=== PATIENT | male | born 1985 | race Caucasian/White ===

== ENCOUNTER 2019-12-27 09:38 | Emergency (ER) | payer MEDICAID ==
[~2019-12-27] VITALS: Ht 183.5 cm; Wt 64.9 kg
[2019-12-27] MEDS ORDERED: PREG150C PO (10:45)
[2019-12-27 10:52] VITALS: BP 110/75
== END 2019-12-27 10:53 | disposition home or self-care (01) ==
LOC: ER 09:38
DX: G40.909 Epilepsy, unspecified, not intractable, without status epilepticus (principal); Z76.0 Encounter for issue of repeat prescription; Z79.899 Other long term (current) drug therapy
CPT/HCPCS: 99281

== ENCOUNTER 2020-01-11 18:17 | Emergency (ER) | payer MEDICAID ==
[~2020-01-11] VITALS: Ht 182.9 cm; Wt 79.5 kg
[~2020-01-11 18:17] MED LIST: PREG150C PO
[2020-01-11 19:44] VITALS: BP 146/88
== END 2020-01-11 20:39 | disposition home or self-care (01) ==
LOC: ER 18:18
DX: S46.811A Strain of other muscles, fascia and tendons at shoulder and upper arm level, right arm, initial encounter (principal); Z79.899 Other long term (current) drug therapy; X58.XXXA Exposure to other specified factors, initial encounter; Y93.89 Activity, other specified; Y92.89 Other specified places as the place of occurrence of the external cause; Y99.8 Other external cause status; Z86.69 Personal history of other diseases of the nervous system and sense organs
CPT/HCPCS: 99281

== ENCOUNTER 2020-01-15 13:41 | Emergency (ER) | payer MEDICAID ==
[~2020-01-15] VITALS: Ht 182.9 cm; Wt 77.9 kg
[2020-01-15 13:44] VITALS: BP 114/70
--- NOTE | 2020-01-15 15:35 | NUR ---
WHEN PATIENT WAS BEING ESCORTED TO [facility], STATED "I FORGOT SOMETHING, I'LL BE RIGHT BACK" PATIENT LEFT AND NEVER RETURNED.
[2020-01-16] MEDS ORDERED: GABA-534 PO (07:14)
== END 2020-01-15 15:36 | disposition left against medical advice (07) ==
LOC: ER 13:41
DX: R56.9 Unspecified convulsions (principal); Z76.0 Encounter for issue of repeat prescription; Z53.21 Procedure and treatment not carried out due to patient leaving prior to being seen by health care provider

== ENCOUNTER 2020-01-15 23:08 | Emergency (ER) | payer MEDICAID ==
[~2020-01-15] VITALS: Ht 182.9 cm; Wt 81.8 kg
[2020-01-15 23:22] VITALS: BP 147/84
[2020-01-16] MEDS ORDERED: GABA-534 PO (07:14)
== END 2020-01-16 01:25 | disposition left against medical advice (07) ==
LOC: ER 23:08
DX: R56.9 Unspecified convulsions (principal); Z76.0 Encounter for issue of repeat prescription; Z53.21 Procedure and treatment not carried out due to patient leaving prior to being seen by health care provider

== ENCOUNTER 2020-01-16 06:54 | Emergency (ER) | payer MEDICAID ==
[~2020-01-16] VITALS: Ht 182.9 cm; Wt 79.0 kg
[2020-01-16 06:58] VITALS: BP 138/84
[2020-01-16] MEDS ORDERED: GABA-534 PO (07:14)
== END 2020-01-16 07:24 | disposition home or self-care (01) ==
LOC: ER 06:55
DX: R56.9 Unspecified convulsions (principal); F17.200 Nicotine dependence, unspecified, uncomplicated; F15.90 Other stimulant use, unspecified, uncomplicated; Z76.0 Encounter for issue of repeat prescription; Z79.899 Other long term (current) drug therapy
CPT/HCPCS: 99281

== ENCOUNTER 2020-01-18 01:20 | Emergency (ER) | payer MEDICAID ==
[~2020-01-18] VITALS: Ht 180.3 cm; Wt 79.5 kg
[~2020-01-18 01:20] MED LIST changes: +GABA-534 PO
[2020-01-18 01:23] VITALS: BP 134/80
== END 2020-01-18 02:39 | disposition left against medical advice (07) ==
LOC: ER 01:21
DX: J45.909 Unspecified asthma, uncomplicated (principal); Z76.0 Encounter for issue of repeat prescription; Z53.21 Procedure and treatment not carried out due to patient leaving prior to being seen by health care provider

== ENCOUNTER 2020-03-01 23:45 | Inpatient (IN) | payer MEDICAID ==
[~2020-03-01] VITALS: Ht 180.3 cm; Wt 84.7 kg
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
[2020-03-02] MEDS ORDERED: LIDOcaine 1% W/epiNEPHrine 1:200,000 10ml vial IJ ONE ×2 (00:10→01:15)
[2020-03-02] MEDS ORDERED: TETanus/Pertussis (Acell)/Diphther VAC/PF (Tdap-Adult) 0.5ml syringe IMVAC ONE (00:10)
[2020-03-02] MEDS ORDERED: haloperidol lactate 5mg/ml inj IM ONE (00:10)
[2020-03-02] MEDS ORDERED: diphenhydrAMINE 50 mg/ml inj IM ONE (00:10)
[2020-03-02] MEDS ORDERED: LORazepam 2 mg/ml vial IM ONE (00:10)
--- NOTE | 2020-03-02 00:20 | NUR ---
Patient hyperactive, erratic, anxious and unable to follow directions. Ativan 2mg, haldol 10 mg and Benadryl 50mg IV administered per physcian's order.
[2020-03-02 00:24] LABS: BASOPHILS # (AUTO) 0.1 X10'3 (0-0.2); BASOPHILS % (AUTO) 1.1 % (0-1); EOSINOPHILS # (AUTO) 0.1 X10'3 (0-0.9); EOSINOPHILS % (AUTO) 1.3 % (0-6); HEMATOCRIT 42.7 % (42.0-52.0); HEMOGLOBIN 14.8 g/dl (14.0-17.9); LYMPHOCYTES # (AUTO) 1.6 X10'3 (1.1-4.8); LYMPHOCYTES % (AUTO) 17.3 % (21-51); MEAN CORPUSCULAR HGB CONC 34.6 g/dL (33.0-36.5); MEAN CORPUSCULAR VOLUME 89.7 FL (78-98); MONOCYTES # (AUTO) 0.7 X10'3 (0-0.9); MONOCYTES % (AUTO) 7.2 % (2-12); NEUTROPHILS # (AUTO) 6.8 X10'3 (1.8-7.7); NEUTROPHILS % (AUTO) 73.1 % (42-75); PLATELET COUNT 230 X10'3 (140-440); RED BLOOD COUNT 4.77 X10'6 (4.70-6.10); RED CELL DISTRIBUTION WIDTH 13.4 % (11.5-14.5); WHITE BLOOD COUNT 9.3 X10'3 (4.5-11.0)
[2020-03-02 00:26] LABS: ALANINE AMINOTRANSFERASE 23 U/L (12-78); ALBUMIN 4.2 G/DL (3.4-5.0); ALBUMIN/GLOBULIN RATIO 1.3 (1.1-1.5); ALKALINE PHOSPHATASE 62 IU/L (46-116); ANION GAP 12 (8-16); ASPARTATE AMINO TRANSFERASE 45 U/L (10-37); BLOOD UREA NITROGEN 19 MG/DL (7-18); BUN/CREATININE RATIO 14.4 (5.4-32.0); CALCIUM 8.8 MG/DL (8.5-10.1); CHLORIDE 106 MMOL/L (99-107); CREATININE 1.32 MG/DL (0.60-1.10); GLUCOSE 111 MG/DL (70-104); POTASSIUM 3.6 MMOL/L (3.5-5.1); SODIUM 141 MMOL/L (135-145); TOTAL CARBON DIOXIDE 22.6 MMOL/L (24-32); TOTAL PROTEIN 7.4 G/DL (6.4-8.2); eGFR 62 ML/MIN
[2020-03-02 00:35] LABS: ETHANOL < 0.010 GM/DL (0.0-0.010)
--- NOTE | 2020-03-02 00:44 | NUR ---
daisy elmore. phone [phone] His states he has a long drug abuse HX. She states he has taken all kinds of drugs including opiates, methamphetamine to pills etc. she states that he hasnt been "right" for quite sometime and is just getting worse. was affraid for her safety and sent him to his parent's in [place] in hopes that they could help him.
--- NOTE | 2020-03-02 00:53 | NUR ---
Spoke with pt. who is able to answer assessment questions more appropriately now. [facility] suicide risk re-done. Pt. denies active S/I at this time.
[2020-03-02 01:03] LABS: CLARITY,URINE SLIGHTLY CLOUDY (Clear); COLOR,URINE YELLOW (Yellow); GLUCOSE, URINE NEGATIVE (Neg); KETONES,URINE NEGATIVE (Neg); LEUKOCYTE ESTERASE ,URINE NEGATIVE (Neg); NITRITES, URINE NEGATIVE (Neg); OCCULT BLOOD,URINE TRACE-INTACT (Neg); PROTEIN,URINE 100 mg/dl (Neg)
[2020-03-02 01:10] LABS: URINE AMPHETAMINE SCREEN POSITIVE (Neg); URINE BARBITUATE SCREEN NEGATIVE (Neg); URINE BENZODIAZEPINES SCREEN NEGATIVE (Neg); URINE CANNABINOID SCREEN NEGATIVE (Neg); URINE COCAINE SCREEN NEGATIVE (Neg); URINE METHADONE SCREEN NEGATIVE (Neg); URINE OPIATE SCREEN NEGATIVE (Neg); URINE PHENCYCLIDINE SCREEN NEGATIVE (Neg)
[2020-03-02 01:20] LABS: UA COLLECTION TYPE STRAIGHT CATH
[2020-03-02 01:24] LABS: AMORPHOUS PHOSPHATES 1+; BACTERIA,URINE NONE SEEN /HPF (Neg); MUCUS STRANDS MANY /LPF (Neg); RBC,URINE 0-2 /HPF (0-2); SQUAMOUS EPITHELIAL CELL,UR FEW /LPF (FEW); WBC,URINE 0-4 /HPF (0-4)
--- NOTE | 2020-03-02 01:29 | NUR ---
Physician at bedside performing loose approximation of R hand lac. Pt. tolerating procedure well.
[2020-03-02] MEDS ORDERED: bacitracin 15gm ointment TP ONE (01:35)
--- NOTE | 2020-03-02 02:05 | NUR ---
control room technician applying splint to R arm/hand per physician's order at this time.
[2020-03-02] MEDS ORDERED: BUPR8TAB4 PO (02:07)
[2020-03-02] MEDS ORDERED: GABA800T11 PO (02:08)
[2020-03-02] MEDS ORDERED: normal saline 1000ML IV soln IVB ONE (02:25)
[2020-03-02] MEDS ORDERED: ceFAZolin 1000mg inj IV ONE (02:25)
[2020-03-02] MEDS ORDERED: cefazolin/dext.iso 2gm/100ml 100 ML IV ONE (02:35)
--- NOTE | 2020-03-02 03:14 | NUR ---
Pt. sleeping comfortably on supine position. VSS. No s/s of distress observed.
--- NOTE | 2020-03-02 04:24 | NUR ---
ASKED TO REVIEW CHART BY NURSE SUP FOR ADMIT TO FLOOR.
--- NOTE | 2020-03-02 04:39 | NUR ---
Pt. continues to sleep. VSS. No s/s of distress observed at this time.
--- NOTE | 2020-03-02 05:23 | NUR ---
Pt. continues to sleep. He is able to reposition self. No s/s of distress observed at this time. VSS.
[2020-03-02] MEDS ORDERED: ondansetron/PF 4mg/2ml inj IV PRN (05:25)
[2020-03-02] MEDS ORDERED: acetaminophen 325mg tablet PO PRN (05:25)
[2020-03-02] MEDS: normal saline 1000ml 1,000 ML IV SCH ×2 (05:34→19:41)
[2020-03-02] MEDS: morphine 2 MG/ML inj. syringe IV PRN (06:12)
--- NOTE | 2020-03-02 06:50 | NUR ---
RECEIVED TELEPHONE REPORT FROM JAIRO FRENCH
[2020-03-02 07:00] VITALS: BP 129/78
[2020-03-02] MEDS ORDERED: BUPRENORPHINE PO SCH (08:00)
[2020-03-02] MEDS: gabapentin 400mg capsule PO SCH ×3 (08:29→20:30)
[2020-03-02 11:00] VITALS: BP 116/77
[2020-03-02] MEDS: VANCOmycin 1250MG/NS 250ml Bag 250 ML IV SCH ×2 (12:20→23:33)
--- NOTE | 2020-03-02 12:52 | NUR ---
CALLED PT'S ABOUT HOME MED SHE SAYS SHE LIVES IN [place], THAT THE PATIENT HAS "MENTAL HEALTH ISSUES" WHICH BROUGHT HIM TO [facility]. SHE SAYS SHE WILL CALL THE PATIENT'S MOM AND ASK HER TO BRING THE MEDICATION.
[2020-03-02] MEDS ORDERED: BUPRENORPHINE SL SCH (13:36)
[2020-03-02 15:00] VITALS: BP 110/67
--- NOTE | 2020-03-02 15:02 | NUR ---
EASILY AWAKENED, THEN GOES BACK TO SLEEP.BEEN LIKE THIS SINCE ARRIVAL. A+0. ASKED IF HE COULD STAY AWAKE/PAY ATTENTION LONG ENOUGH FOR ADMISSION INTERVIEW(DART). STATES:" NO, WOULD LIKE TO DO IT LATER".
--- NOTE | 2020-03-02 18:10 | NUR ---
Patient in room U 3022. I have received report from JAIRO Ignacio and had the opportunity to ask questions and assume patient care. Patient denies CP, SOB, dizziness, n/v,and rated pain 0/10. Patient denies suicidal thoughts. Patient seems fatigued and sleepy. Sitter in place
--- NOTE | 2020-03-02 18:10 | NUR ---
Problems reprioritized. Patient report given, questions answered & plan of care reviewed with marily castellano.
[2020-03-02 19:00] VITALS: BP 111/69
[2020-03-02 22:00] VITALS: BP 113/69
--- NOTE | 2020-03-02 22:54 | NUR ---
EDWIN: Got information for the admission assessment from , Gaby at . She makes all decision for patient.
[2020-03-03] VITALS (22 sets, daily range): BP systolic 105–141; BP diastolic 55–90
[2020-03-03] MEDS: HYDROcodone/acetaminophen 5mg/325mg tablet PO PRN (05:01)
[2020-03-03 05:30] LABS: BASOPHILS % (AUTO) 0.7 % (0-1); EOSINOPHILS # (AUTO) 0.3 X10'3 (0-0.9); EOSINOPHILS % (AUTO) 4.5 % (0-6); HEMATOCRIT 39.3 % (42.0-52.0); HEMOGLOBIN 13.3 g/dl (14.0-17.9); LYMPHOCYTES # (AUTO) 2.2 X10'3 (1.1-4.8); LYMPHOCYTES % (AUTO) 35.3 % (21-51); MEAN CORPUSCULAR HEMOGLOBIN 30.6 PG (27.0-31.0); MEAN CORPUSCULAR HGB CONC 33.8 g/dL (33.0-36.5); MEAN CORPUSCULAR VOLUME 90.4 FL (78-98); MEAN PLATELET VOLUME 8.2 FL (7.4-10.4); MONOCYTES # (AUTO) 0.5 X10'3 (0-0.9); MONOCYTES % (AUTO) 8.2 % (2-12); NEUTROPHILS # (AUTO) 3.2 X10'3 (1.8-7.7); NEUTROPHILS % (AUTO) 51.3 % (42-75); PLATELET COUNT 191 X10'3 (140-440); RED BLOOD COUNT 4.35 X10'6 (4.70-6.10); WHITE BLOOD COUNT 6.1 X10'3 (4.5-11.0)
[2020-03-03] MEDS: normal saline 1000ml 1,000 ML IV SCH ×2 (05:35→15:37)
[2020-03-03 05:42] LABS: ANION GAP 7 (8-16); BLOOD UREA NITROGEN 12 MG/DL (7-18); BUN/CREATININE RATIO 15.4 (5.4-32.0); CALCIUM 7.9 MG/DL (8.5-10.1); CHLORIDE 109 MMOL/L (99-107); CREATININE 0.78 MG/DL (0.60-1.10); GLUCOSE 83 MG/DL (70-104); POTASSIUM 3.8 MMOL/L (3.5-5.1); SODIUM 141 MMOL/L (135-145); TOTAL CARBON DIOXIDE 25.4 MMOL/L (24-32); eGFR > 90 ML/MIN
--- NOTE | 2020-03-03 06:25 | NUR ---
Problems reprioritized. Patient report given, questions answered & plan of care reviewed with JAIRO Ignacio.
--- NOTE | 2020-03-03 06:30 | NUR ---
Patient in room PCU 3022. I have received report from zaynab castellano had the opportunity to ask questions and assume patient care.
[2020-03-03] MEDS: gabapentin 400mg capsule PO SCH ×3 (07:51→19:57)
[2020-03-03] MEDS ORDERED: BUPRENORPHINE SL SCH (08:00)
[2020-03-03] MEDS: VANCOmycin 1250MG/NS 250ml Bag 250 ML IV SCH ×2 (08:46→16:19)
[2020-03-03] MEDS ORDERED: BUPRENORPHINE HCL 8 MG SL SCH (11:01)
[2020-03-03] MEDS ORDERED: BUPIVAcaine/PF 2.5mg/ml (0.25%) 10ml vial ONE (11:16)
--- NOTE | 2020-03-03 11:34 | NUR ---
TO OR VIA BED.
[2020-03-03] MEDS ORDERED: ondansetron/PF 4mg/2ml inj IV PRN (11:55)
[2020-03-03] MEDS ORDERED: meperidine/PF 25mg/ml syringe IV PRN ×3 (11:55)
[2020-03-03] MEDS ORDERED: ringers solution, lacted 1,000 ML IV SCH (11:55)
[2020-03-03] MEDS ORDERED: morphine 4 MG/ML inj SYRINge IV PRN (11:55)
[2020-03-03] MEDS ORDERED: morphine 2 MG/ML inj. syringe IV PRN (11:55)
[2020-03-03] MEDS ORDERED: acetaminophen 1,000mg/100ml IV 100 ML IV PRN (11:55)
[2020-03-03] MEDS ORDERED: proCHLORperazine 10 MG/2 ml inj IV PRN (11:55)
[2020-03-03] MEDS ORDERED: sevoflurane 250ml liquid IH ONE (12:01)
[2020-03-03] MEDS ORDERED: midazolam 2 mg/2 ml injection ONE (12:05)
[2020-03-03] MEDS ORDERED: LIDOcaine 2% (20mg/ml) 5ml vial ONE (12:18)
[2020-03-03] MEDS ORDERED: propofol inj 20 ML IV ONE (12:18)
[2020-03-03] MEDS ORDERED: fentaNYL/PF 50MCG/1 ML 2ML syringe ONE (12:18)
[2020-03-03] MEDS ORDERED: ondansetron/PF 4mg/2ml inj ONE (12:21)
[2020-03-03] MEDS ORDERED: dexamethasone sod phosphate 4mg/ml inj. ONE (12:21)
[2020-03-03] MEDS ORDERED: ketorolac trometh. 30mg/ml inj. ONE (12:24)
[2020-03-03] MEDS ORDERED: BUPIVAcaine/PF 2.5 mg/ml (0.25%) 30ml vial ONE (12:30)
[2020-03-03] MEDS ORDERED: morphine 10mg/ml inj. ONE ×2 (12:36→13:16)
--- NOTE | 2020-03-03 13:25 | NUR ---
Received from OR via BED, accompanied by Anesthesiologist DR JOSUE and report given by Anesthesiolgist. PATIENT A&OX4, DENIES PAIN, V/S WNL, NEUROVASCULAR CHECKS INTACT, 18G PIV LUE, SCD ON, DRESSING TO RIGHT WRIST CDI ELEVATED WITH ICEBAG APPLIED.
[2020-03-03] MEDS ORDERED: famotidine/PF 10 mg/ml inj IV ONE ×2 (13:29→13:30)
--- NOTE | 2020-03-03 15:05 | NUR ---
PATIENT A&OX4, DENIES PAIN, V/S WNL, NEUROVASCULAR CHECKS INTACT, 18G PIV LUE, SCD ON, DRESSING TO RIGHT WRIST CDI ELEVATED WITH ICEBAG APPLIED. PATIENT TAKEN TO 3022 WITH ALL BELONGINGS AND HOOKED UP TO MONITORS IN ROOM AND REPORT GIVEN TO RN WHO HAS TAKEN OVER PATIENT CARE.
--- NOTE | 2020-03-03 15:10 | NUR ---
RETURNED FROM VIA BED. RIGHT HAND IN CLUB CAST/SPILT, CDI. GOOD CIRCULATION TO THUMB AND INDEX FINGER, RE ONLY ONES EXPOSED. WILL CONTINUE TO MONITOR.
--- NOTE | 2020-03-03 18:32 | NUR ---
Patient in room PCU 3022. I have received report from Maddy GILL and had the opportunity to ask questions and assume patient care.
--- NOTE | 2020-03-03 18:35 | NUR ---
Problems reprioritized. Patient report given, questions answered & plan of care reviewed with JAIRO ROBERTS.
[2020-03-03] MEDS: lactobacillus rhamnosus 10,000 MMU CELLS/CAPSULE PO SCH (19:57)
[2020-03-03] MEDS: nicotine 21mg patch - 24 hr TD SCH (19:58)
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
[2020-03-03] MEDS ORDERED: VANCOMYCIN LEVEL IV ONE (23:30)
[2020-03-04] VITALS (7 sets, daily range): BP systolic 82–163; BP diastolic 52–91
[2020-03-04] MEDS: VANCOmycin 1250MG/NS 250ml Bag 250 ML IV SCH ×3 (00:07→16:11)
[2020-03-04] MEDS: normal saline 1000ml 1,000 ML IV SCH ×3 (04:56→16:14)
--- NOTE | 2020-03-04 06:17 | NUR ---
Problems reprioritized. Patient report given, questions answered & plan of care reviewed with Mateus RN.
--- NOTE | 2020-03-04 06:30 | NUR ---
Patient in room PCU 3022. I have received report from marily arrington and had the opportunity to ask questions and assume patient care.
--- NOTE | 2020-03-04 06:50 | NUR ---
c/o pain right hand, wants next Neurontin dose along with daily Suboxone. call to "[facility]" rx. will change time of suboxone and prepare dose. pt does not want ms or norco at this time.
[2020-03-04] MEDS: gabapentin 400mg capsule PO SCH ×3 (07:09→20:41)
[2020-03-04] MEDS: BUPRENORPHINE HCL 8 MG SL SCH (07:10)
[2020-03-04] MEDS ORDERED: VANCOMYCIN LEVEL IV ONE (07:30)
[2020-03-04] MEDS: nicotine 21mg patch - 24 hr TD SCH (07:49)
[2020-03-04] MEDS: lactobacillus rhamnosus 10,000 MMU CELLS/CAPSULE PO SCH ×2 (07:50→20:42)
[2020-03-04 08:03] LABS: BASOPHILS # (AUTO) 0.1 X10'3 (0-0.2); BASOPHILS % (AUTO) 0.7 % (0-1); EOSINOPHILS # (AUTO) 0.1 X10'3 (0-0.9); EOSINOPHILS % (AUTO) 1.5 % (0-6); HEMATOCRIT 38.1 % (42.0-52.0); HEMOGLOBIN 13.2 g/dl (14.0-17.9); LYMPHOCYTES # (AUTO) 2.1 X10'3 (1.1-4.8); LYMPHOCYTES % (AUTO) 26.4 % (21-51); MEAN CORPUSCULAR HEMOGLOBIN 31.2 PG (27.0-31.0); MEAN CORPUSCULAR HGB CONC 34.6 g/dL (33.0-36.5); MEAN CORPUSCULAR VOLUME 90.3 FL (78-98); MEAN PLATELET VOLUME 7.9 FL (7.4-10.4); MONOCYTES # (AUTO) 0.7 X10'3 (0-0.9); MONOCYTES % (AUTO) 8.5 % (2-12); NEUTROPHILS % (AUTO) 62.9 % (42-75); PLATELET COUNT 178 X10'3 (140-440); RED BLOOD COUNT 4.21 X10'6 (4.70-6.10); RED CELL DISTRIBUTION WIDTH 13.7 % (11.5-14.5); WHITE BLOOD COUNT 7.9 X10'3 (4.5-11.0)
[2020-03-04 08:25] LABS: ANION GAP 4 (8-16); BLOOD UREA NITROGEN 12 MG/DL (7-18); BUN/CREATININE RATIO 14.3 (5.4-32.0); CALCIUM 7.7 MG/DL (8.5-10.1); CHLORIDE 108 MMOL/L (99-107); CREATININE 0.84 MG/DL (0.60-1.10); GLUCOSE 93 MG/DL (70-104); POTASSIUM 3.8 MMOL/L (3.5-5.1); SODIUM 138 MMOL/L (135-145); TOTAL CARBON DIOXIDE 26.3 MMOL/L (24-32); VANCOMYCIN,TROUGH 15.3 UG/ML (6.0-14.0); eGFR > 90 ML/MIN
--- NOTE | 2020-03-04 11:30 | NUR ---
CLEARED TO MOVE TO [facility] PER JOHAN VERA. WILL INFORM HOSPITALIST TO GET CLEARANCE . AWAITING CALL BACK.
--- NOTE | 2020-03-04 11:33 | NUR ---
PAGER ID: [phone] MESSAGE: DR. ZHANG, 5579D/DI, JUST TOLD BY [facility] JAIRO MACKEY THAT JES VELOZ GAVE SURGICAL CLEARANCE FOR GOING TO [facility]. LEIGHA [phone]. TY
--- NOTE | 2020-03-04 13:34 | NUR ---
paged ss: Cherrie, please call umang [phone] r/t [phone]. ty.
[2020-03-04] MEDS: LORazepam 2 mg/ml vial IV PRN ×3 (14:48→20:46)
--- NOTE | 2020-03-04 15:54 | NUR ---
PAGER ID: [phone] MESSAGE: DR. ZHANG, 3026I/DI [facility] WAS HERE, NO [phone]. REPORT WILL BE FAXED TO US.
[2020-03-04] MEDS: morphine 2 MG/ML inj. syringe IV PRN ×2 (16:22→20:47)
--- NOTE | 2020-03-04 16:53 | NUR ---
PAGER ID: [phone] MESSAGE: DR. ZHANG, 2722A/DI, THE REPORT FROM [facility] IS HERE. HIS MOTHER JUST CALLED, BASICALLY BEGGING FOR HIM TO BE DISCHARGED TOMORROW. LEIGHA [phone].TY.
--- NOTE | 2020-03-04 18:12 | NUR ---
Problems reprioritized. Patient report given, questions answered & plan of care reviewed with JAIRO ROBERTS.
[2020-03-05] MEDS: VANCOmycin 1250MG/NS 250ml Bag 250 ML IV SCH ×2 (00:53→08:05)
[2020-03-05 03:17] VITALS: BP 125/84
[2020-03-05] MEDS: morphine 2 MG/ML inj. syringe IV PRN (04:09)
[2020-03-05] MEDS: LORazepam 2 mg/ml vial IV PRN (04:09)
[2020-03-05 05:15] LABS: BASOPHILS # (AUTO) 0.1 X10'3 (0-0.2); BASOPHILS % (AUTO) 1.1 % (0-1); EOSINOPHILS # (AUTO) 0.2 X10'3 (0-0.9); HEMATOCRIT 40.1 % (42.0-52.0); HEMOGLOBIN 13.6 g/dl (14.0-17.9); LYMPHOCYTES # (AUTO) 2.3 X10'3 (1.1-4.8); LYMPHOCYTES % (AUTO) 41.5 % (21-51); MEAN CORPUSCULAR HEMOGLOBIN 30.4 PG (27.0-31.0); MEAN CORPUSCULAR HGB CONC 33.8 g/dL (33.0-36.5); MEAN CORPUSCULAR VOLUME 89.9 FL (78-98); MEAN PLATELET VOLUME 8.1 FL (7.4-10.4); MONOCYTES # (AUTO) 0.4 X10'3 (0-0.9); MONOCYTES % (AUTO) 8.1 % (2-12); NEUTROPHILS # (AUTO) 2.5 X10'3 (1.8-7.7); NEUTROPHILS % (AUTO) 46.3 % (42-75); PLATELET COUNT 188 X10'3 (140-440); RED BLOOD COUNT 4.46 X10'6 (4.70-6.10); RED CELL DISTRIBUTION WIDTH 13.6 % (11.5-14.5); WHITE BLOOD COUNT 5.5 X10'3 (4.5-11.0)
[2020-03-05 05:34] LABS: ALBUMIN 3.1 G/DL (3.4-5.0); ANION GAP 3 (8-16); BLOOD UREA NITROGEN 9 MG/DL (7-18); BUN/CREATININE RATIO 11.7 (5.4-32.0); CALCIUM 8.5 MG/DL (8.5-10.1); CHLORIDE 109 MMOL/L (99-107); CREATININE 0.77 MG/DL (0.60-1.10); GLUCOSE 96 MG/DL (70-104); POTASSIUM 3.8 MMOL/L (3.5-5.1); SODIUM 140 MMOL/L (135-145); TOTAL CARBON DIOXIDE 28.2 MMOL/L (24-32); eGFR > 90 ML/MIN
[2020-03-05 06:00] VITALS: BP 121/70
--- NOTE | 2020-03-05 06:07 | NUR ---
Problems reprioritized. Patient report given, questions answered & plan of care reviewed with Sunni GILL.
[2020-03-05] MEDS: lactobacillus rhamnosus 10,000 MMU CELLS/CAPSULE PO SCH (08:05)
[2020-03-05] MEDS: gabapentin 400mg capsule PO SCH ×2 (08:05→13:10)
[2020-03-05] MEDS: nicotine 21mg patch - 24 hr TD SCH (08:06)
[2020-03-05] MEDS: normal saline 1000ml 1,000 ML IV SCH (08:06)
[2020-03-05] MEDS: BUPRENORPHINE HCL 8 MG SL SCH (09:35)
[2020-03-05 11:00] VITALS: BP 114/71
--- NOTE | 2020-03-05 11:36 | NUR ---
PAGER ID: [phone] MESSAGE: JAIRO Moeller, ext [phone], Del, LETTY orders are not showing as complete, mother is calling asking for medication details for discharge and is planning on picking him up in ~1hr. please call
[2020-03-05] MEDS ORDERED: CARI250T PO (11:40)
[2020-03-05] MEDS ORDERED: CEPH500C5 PO (11:43)
--- NOTE | 2020-03-05 13:04 | NUR ---
PAGER ID: [phone] MESSAGE: JAIRO Moeller, ext [phone], Del, pt mom called, she is at pharmacy, pharmacy says they cannot fill muscle relaxer and Keflex together as they cause opiate effects.
[2020-03-05] MEDS: HYDROcodone/acetaminophen 5mg/325mg tablet PO PRN (13:14)
--- NOTE | 2020-03-05 14:15 | NUR ---
Received order for patient to discharge home. IV removed, catheter tip intact, hemostasis achieved. Patient medications retrieved from pharmacy and given to patient. Patient will follow up with surgeon outpatient. Educated patient on new medications, verbalized understanding of teaching. Patient able to ambulate to lobby accompanied by PCT where his ride was waiting. Stable at time of discharge.
== END 2020-03-05 13:40 | disposition home or self-care (01) | DRG 364 ==
LOC: ER 23:45 → ED HOLD 03-02 05:23 → PCU 3S 03-02 06:55
PROVIDERS: ADMIT Internal Medicine; ATTEND Family Medicine
PROC: 01Q40ZZ Repair Ulnar Nerve, Open Approach (ICD-10-PCS; 2020-03-03)
PROC: 0LQ70ZZ Repair Right Hand Tendon, Open Approach (ICD-10-PCS; principal; 2020-03-03 12:01)
DX: S61.214A Laceration without foreign body of right ring finger without damage to nail, initial encounter (principal); N17.9 Acute kidney failure, unspecified; F15.10 Other stimulant abuse, uncomplicated; S61.216A Laceration without foreign body of right little finger without damage to nail, initial encounter; S61.011A Laceration without foreign body of right thumb without damage to nail, initial encounter; F31.9 Bipolar disorder, unspecified; S66.921A Laceration of unspecified muscle, fascia and tendon at wrist and hand level, right hand, initial encounter; Z91.5 Personal history of self-harm; Z95.0 Presence of cardiac pacemaker; Z79.899 Other long term (current) drug therapy; G89.4 Chronic pain syndrome
CPT/HCPCS: 12004; 36415; 73120; 80048; 80053; 80202; 80305; 80320; 81001; 82948; 84443; 85025; 87081; 90471; 90715; 93005; 99285; A4215; A4618; A6222; A6449; A7000; G0378; J0131; J1100; J1200; J1630; J1885; J2001; J2060; J2250; J2270; J2405; J2704; J3010; J3370; J3490; J7030; J7120

== ENCOUNTER 2020-03-11 13:45 | Emergency (ER) | payer MEDICAID ==
[~2020-03-11] VITALS: Ht 182.9 cm; Wt 81.3 kg
[~2020-03-11 13:45] MED LIST changes: +BUPR8TAB4 PO; +CARI250T PO; +CEPH500C5 PO; -GABA-534 PO; +GABA800T11 PO; -PREG150C PO
[2020-03-11 13:55] VITALS: BP 134/78
[2020-03-11] MEDS ORDERED: LIDOcaine 1% W/epiNEPHrine 1:200,000 10ml vial IJ ONE (16:30)
[2020-03-11] MEDS ORDERED: cephalexin 250mg capsule PO ONE (16:30)
== END 2020-03-11 17:16 | disposition home or self-care (01) ==
LOC: ER 13:45
DX: T81.31XA Disruption of external operation (surgical) wound, not elsewhere classified, initial encounter (principal); F15.10 Other stimulant abuse, uncomplicated; Z79.899 Other long term (current) drug therapy; Y92.89 Other specified places as the place of occurrence of the external cause
CPT/HCPCS: 99283

== ENCOUNTER 2020-03-16 11:23 | Emergency (ER) | payer MEDICAID ==
[~2020-03-16] VITALS: Ht 180.3 cm; Wt 78.0 kg
[2020-03-16 11:38] VITALS: BP 135/76
== END 2020-03-16 12:58 | disposition home or self-care (01) ==
LOC: ER 11:24
DX: S61.411A Laceration without foreign body of right hand, initial encounter (principal); F17.200 Nicotine dependence, unspecified, uncomplicated; F15.90 Other stimulant use, unspecified, uncomplicated; F11.90 Opioid use, unspecified, uncomplicated; Z79.899 Other long term (current) drug therapy; Z86.69 Personal history of other diseases of the nervous system and sense organs; Z48.00 Encounter for change or removal of nonsurgical wound dressing; X58.XXXA Exposure to other specified factors, initial encounter; Y93.89 Activity, other specified; Y92.89 Other specified places as the place of occurrence of the external cause; Y99.8 Other external cause status
CPT/HCPCS: 29125; 99283

== ENCOUNTER 2020-04-02 04:10 | Emergency (ER) | payer MEDICAID ==
[~2020-04-02] VITALS: Ht 180.3 cm; Wt 77.3 kg
--- NOTE | 2020-04-02 04:19 | NUR ---
PER EDMD ANDREY, ORDER 2MG ATIVAN IM X1 DOSE NOW FOR "FAST HEART RATE." ORDER PLACED REQUESTED
[2020-04-02] MEDS ORDERED: LORazepam 2 mg/ml vial IM ONE (04:20)
[2020-04-02] MEDS ORDERED: OLANZapine **IM** 10 mg inj. IM ONE ×2 (04:30→04:40)
[2020-04-02 04:46] VITALS: BP 139/78
== END 2020-04-02 04:45 ==
LOC: ER 04:10
DX: F11.10 Opioid abuse, uncomplicated (principal); F15.10 Other stimulant abuse, uncomplicated; R00.0 Tachycardia, unspecified; Z86.69 Personal history of other diseases of the nervous system and sense organs; Z79.899 Other long term (current) drug therapy
CPT/HCPCS: 96372; 99284; J2060; J3490

== ENCOUNTER 2020-04-18 18:07 | Inpatient (IN) | payer MEDICAID ==
[~2020-04-18] VITALS: Ht 180.3 cm; Wt 86.4 kg
[~2020-04-18 18:07] MED LIST changes: -CARI250T PO
[2020-04-18] MEDS ORDERED: normal saline 1000ML IV soln IV ONE (19:35)
[2020-04-18] MEDS ORDERED: piperacillin/tazo 3.375gm/50ml 50 ML IV ONE (19:35)
[2020-04-18] MEDS ORDERED: HYDROcodone/acetaminophen 10/325mg tab PO ONE (19:35)
[2020-04-18] MEDS ORDERED: vancomycin/NS 1 GM ADD-VANTAGE 250 ML IV ONE (19:35)
[2020-04-18] MEDS ORDERED: LORazepam 1 MG tablet PO ONE (19:35)
--- NOTE | 2020-04-18 20:20 | NUR ---
Pt refused his norco 10/325mg because he states he would rather take his subutex for pain. Dose wasted with Omari Rocha RN.
[2020-04-18 20:38] LABS: BASOPHILS # (AUTO) 0.1 X10'3 (0-0.2); BASOPHILS % (AUTO) 0.8 % (0-1); EOSINOPHILS # (AUTO) 0.1 X10'3 (0-0.9); EOSINOPHILS % (AUTO) 1.2 % (0-6); HEMATOCRIT 40.1 % (42.0-52.0); HEMOGLOBIN 13.4 g/dl (14.0-17.9); LYMPHOCYTES # (AUTO) 2.3 X10'3 (1.1-4.8); LYMPHOCYTES % (AUTO) 20.8 % (21-51); MEAN CORPUSCULAR HEMOGLOBIN 30.2 PG (27.0-31.0); MEAN CORPUSCULAR HGB CONC 33.5 g/dL (33.0-36.5); MEAN CORPUSCULAR VOLUME 90.3 FL (78-98); MEAN PLATELET VOLUME 7.7 FL (7.4-10.4); MONOCYTES # (AUTO) 0.8 X10'3 (0-0.9); NEUTROPHILS # (AUTO) 7.9 X10'3 (1.8-7.7); NEUTROPHILS % (AUTO) 70.2 % (42-75); PLATELET COUNT 235 X10'3 (140-440); RED BLOOD COUNT 4.44 X10'6 (4.70-6.10); RED CELL DISTRIBUTION WIDTH 13.5 % (11.5-14.5); WHITE BLOOD COUNT 11.2 X10'3 (4.5-11.0)
[2020-04-18 20:50] LABS: PARTIAL THROMBOPLASTIN TIME 31 SECONDS (22-32)
[2020-04-18 20:51] LABS: ALANINE AMINOTRANSFERASE 59 U/L (12-78); ALBUMIN 4.2 G/DL (3.4-5.0); ALBUMIN/GLOBULIN RATIO 1.4 (1.1-1.5); ALKALINE PHOSPHATASE 78 IU/L (46-116); ANION GAP 8 (8-16); ASPARTATE AMINO TRANSFERASE 59 U/L (10-37); BLOOD UREA NITROGEN 28 MG/DL (7-18); BUN/CREATININE RATIO 25.5 (5.4-32.0); CALCIUM 8.7 MG/DL (8.5-10.1); CHLORIDE 102 MMOL/L (99-107); GLUCOSE 93 MG/DL (70-104); MAGNESIUM 2.1 MG/DL (1.5-2.4); POTASSIUM 3.2 MMOL/L (3.5-5.1); SODIUM 138 MMOL/L (135-145); TOTAL CARBON DIOXIDE 27.8 MMOL/L (24-32); TOTAL PROTEIN 7.3 G/DL (6.4-8.2); eGFR 77 ML/MIN
[2020-04-18 21:45] LABS: CLARITY,URINE SLIGHTLY CLOUDY (Clear); COLOR,URINE YELLOW (Yellow); GLUCOSE, URINE NEGATIVE (Neg); KETONES,URINE TRACE mg/dl (Neg); LEUKOCYTE ESTERASE ,URINE NEGATIVE (Neg); NITRITES, URINE NEGATIVE (Neg); OCCULT BLOOD,URINE NEGATIVE (Neg); PH,URINE 7.5 (4.8-8.0); PROTEIN,URINE NEGATIVE (Neg); UROBILINOGEN,URINE 0.2 E.U/dL (0.2-1.0)
[2020-04-18 21:50] LABS: UA COLLECTION TYPE CLN CATCH MIDSTREAM
[2020-04-18 21:51] LABS: AMORPHOUS PHOSPHATES 1+; BACTERIA,URINE FEW /HPF (Neg); RBC,URINE NONE SEEN /HPF (0-2); SQUAMOUS EPITHELIAL CELL,UR FEW /LPF (FEW); WBC,URINE NONE SEEN /HPF (0-4)
[2020-04-18] MEDS ORDERED: buprenorphine/naloxone 8MG-2MG SUBlingual film SL SCH (22:25)
[2020-04-18] MEDS ORDERED: buprenorphine/naloxone 8MG-2MG SUBlingual film SL ONE (22:25)
[2020-04-18] MEDS ORDERED: iohexol 300mg/ml 100ml inj. ONE (22:42)
[2020-04-19] MEDS ORDERED: mag hydrox/Alum hydrox/simeth 30ml oral suspension PO PRN (00:25)
[2020-04-19] MEDS ORDERED: magnesium hydroxide 30ml (MOM) UD suspension PO PRN (00:25)
[2020-04-19] MEDS ORDERED: acetaminophen 325mg tablet PO PRN (00:25)
[2020-04-19] MEDS ORDERED: ondansetron/PF 4mg/2ml inj IV PRN (00:25)
[2020-04-19] MEDS ORDERED: HYDROcodone/acetaminophen 5mg/325mg tablet PO PRN (00:25)
[2020-04-19] MEDS ORDERED: morphine 2 MG/ML inj. syringe IV PRN (00:25)
--- NOTE | 2020-04-19 01:05 | NUR ---
Report given to me by Prashant GILL and I will relay the information to Angi GILL once she is available.
[2020-04-19 01:30] VITALS: BP 122/73
[2020-04-19] MEDS: clindamycin 600mg/D5W 50ml 50 ML IV SCH ×2 (01:55→07:23)
[2020-04-19] MEDS: dextrose 5%-1/2 normal saline 1,000 ML IV SCH ×2 (01:58→11:36)
[2020-04-19 05:59] VITALS: BP 126/87
--- NOTE | 2020-04-19 06:25 | NUR ---
Patient in room ORTHO 4010. I have received report from SHAZIA GILL and had the opportunity to ask questions and assume patient care.
--- NOTE | 2020-04-19 06:37 | NUR ---
Problems reprioritized. Patient report given, questions answered & plan of care reviewed with CHRISSY GILL.
[2020-04-19] MEDS ORDERED: magnesium Cl slow-release 64mg tablet PO PRN (07:10)
[2020-04-19] MEDS ORDERED: potassium Cl 20 mEq SR tablet PO PRN ×2 (07:10)
[2020-04-19] MEDS ORDERED: magnesium 4gm in 100ml NS 100 ML IV PRN (07:10)
[2020-04-19] MEDS ORDERED: potassium CL 10mEq/100ml bag 100 ML IV PRN (07:10)
[2020-04-19] MEDS: gabapentin 400mg capsule PO SCH ×3 (07:23→20:01)
[2020-04-19] MEDS: morphine 2 MG/ML inj. syringe IV PRN ×4 (07:28→19:56)
[2020-04-19 07:37] LABS: MAGNESIUM 2.4 MG/DL (1.5-2.4); POTASSIUM 3.6 MMOL/L (3.5-5.1)
[2020-04-19] MEDS: K and/or MAG REPLACEMENT MC SCH ×2 (08:00→20:00)
[2020-04-19] MEDS: linezolid 600mg/300ml PREMIX 300 ML IV SCH ×2 (11:37→20:45)
[2020-04-19 11:42] VITALS: BP 122/85
[2020-04-19 11:54] LABS: URINE AMPHETAMINE SCREEN POSITIVE (Neg); URINE BARBITUATE SCREEN NEGATIVE (Neg); URINE BENZODIAZEPINES SCREEN NEGATIVE (Neg); URINE CANNABINOID SCREEN NEGATIVE (Neg); URINE COCAINE SCREEN NEGATIVE (Neg); URINE METHADONE SCREEN NEGATIVE (Neg); URINE OPIATE SCREEN POSITIVE (Neg); URINE PHENCYCLIDINE SCREEN NEGATIVE (Neg)
[2020-04-19] MEDS: piperacillin/tazo 3.375gm/50ml 50 ML IV SCH ×2 (12:29→16:08)
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
[2020-04-19] MEDS: acetaminophen 325mg tablet PO PRN (16:09)
[2020-04-19 17:00] VITALS: BP 130/87
--- NOTE | 2020-04-19 18:05 | NUR ---
Problems reprioritized. Patient report given, questions answered & plan of care reviewed with BARBARA GILL.
--- NOTE | 2020-04-19 18:31 | NUR ---
Patient in room ORTHO 4010. I have received report from Derick GILL and had the opportunity to ask questions and assume patient care.
--- NOTE | 2020-04-19 19:00 | NUR ---
Patient saying norco does not work for him and refusing to take it.
[2020-04-19] MEDS: lactobacillus rhamnosus 10,000 MMU CELLS/CAPSULE PO SCH (19:59)
[2020-04-19 22:00] VITALS: BP 112/70
[2020-04-20] MEDS: dextrose 5%-1/2 normal saline 1,000 ML IV SCH ×4 (00:08→20:46)
[2020-04-20] MEDS: piperacillin/tazo 3.375gm/50ml 50 ML IV SCH ×4 (00:08→23:49)
[2020-04-20] MEDS: morphine 2 MG/ML inj. syringe IV PRN ×4 (00:14→23:50)
[2020-04-20] MEDS: acetaminophen 325mg tablet PO PRN ×2 (04:13→20:35)
--- NOTE | 2020-04-20 04:16 | NUR ---
Found a needle that is not from the hospital and 2 pills in a canister on patients bedside table. Informed charge nurse.
--- NOTE | 2020-04-20 04:45 | NUR ---
Took pills to pharmacy and ID them as his home med Buprenorphine. paged.
--- NOTE | 2020-04-20 06:00 | NUR ---
Patient in room ORTHO 4010. I have received report from [facility] and had the opportunity to ask questions and assume patient care.
--- NOTE | 2020-04-20 06:21 | NUR ---
Problems reprioritized. Patient report given, questions answered & plan of care reviewed with Vaishali GILL.
[2020-04-20 06:43] LABS: BASOPHILS # (AUTO) 0.1 X10'3 (0-0.2); BASOPHILS % (AUTO) 0.7 % (0-1); EOSINOPHILS # (AUTO) 0.2 X10'3 (0-0.9); EOSINOPHILS % (AUTO) 2.7 % (0-6); HEMATOCRIT 37.4 % (42.0-52.0); HEMOGLOBIN 12.5 g/dl (14.0-17.9); LYMPHOCYTES # (AUTO) 1.5 X10'3 (1.1-4.8); LYMPHOCYTES % (AUTO) 18.7 % (21-51); MEAN CORPUSCULAR HEMOGLOBIN 30.1 PG (27.0-31.0); MEAN CORPUSCULAR HGB CONC 33.5 g/dL (33.0-36.5); MEAN CORPUSCULAR VOLUME 89.9 FL (78-98); MEAN PLATELET VOLUME 7.6 FL (7.4-10.4); MONOCYTES # (AUTO) 0.7 X10'3 (0-0.9); MONOCYTES % (AUTO) 8.2 % (2-12); NEUTROPHILS # (AUTO) 5.7 X10'3 (1.8-7.7); NEUTROPHILS % (AUTO) 69.7 % (42-75); PLATELET COUNT 194 X10'3 (140-440); RED BLOOD COUNT 4.16 X10'6 (4.70-6.10); RED CELL DISTRIBUTION WIDTH 13.5 % (11.5-14.5); WHITE BLOOD COUNT 8.2 X10'3 (4.5-11.0)
[2020-04-20 06:56] LABS: ALBUMIN 3.1 G/DL (3.4-5.0); ANION GAP 7 (8-16); BLOOD UREA NITROGEN 10 MG/DL (7-18); BUN/CREATININE RATIO 13.3 (5.4-32.0); CALCIUM 8.4 MG/DL (8.5-10.1); CHLORIDE 105 MMOL/L (99-107); CREATININE 0.75 MG/DL (0.60-1.10); GLUCOSE 120 MG/DL (70-104); MAGNESIUM 2.4 MG/DL (1.5-2.4); POTASSIUM 3.8 MMOL/L (3.5-5.1); SODIUM 138 MMOL/L (135-145); TOTAL CARBON DIOXIDE 26.1 MMOL/L (24-32); eGFR > 90 ML/MIN
[2020-04-20] MEDS: K and/or MAG REPLACEMENT MC SCH ×2 (07:20→19:06)
[2020-04-20] MEDS: lactobacillus rhamnosus 10,000 MMU CELLS/CAPSULE PO SCH ×2 (08:53→19:19)
[2020-04-20] MEDS: gabapentin 400mg capsule PO SCH ×3 (08:53→20:29)
[2020-04-20] MEDS: linezolid 600mg tablet PO SCH ×2 (08:53→19:19)
[2020-04-20 10:00] VITALS: BP 137/98
--- NOTE | 2020-04-20 12:14 | NUR ---
anitaox consult: Pt seen by JOEL for written/verbal zyvox ed w/ JOEL contact information provided. Addendum: 04/20/20 at [address] Amended: Links added.
[2020-04-20 18:00] VITALS: BP 130/81
--- NOTE | 2020-04-20 18:17 | NUR ---
Problems reprioritized. Patient report given, questions answered & plan of care reviewed with Katrin.
--- NOTE | 2020-04-20 18:18 | NUR ---
Patient in room ORTHO 4010. I have received report from Vaishali GILL and had the opportunity to ask questions and assume patient care.
--- NOTE | 2020-04-20 19:15 | NUR ---
Patient complaining of severe pain. I offered him Bennett and he stated that he can not take norco because it makes him really sick. Morphine given for pain.
[2020-04-20] MEDS: heparin, porcine 5000 units/ml vial SQ SCH (20:47)
--- NOTE | 2020-04-20 20:56 | NUR ---
Patients arm has been very painful, gave morphine and also tylenol for pain. Warm compress placed on patients arm and he states that it is helping relieve some pain.
[2020-04-20 22:00] VITALS: BP 126/83
[2020-04-21] MEDS: morphine 2 MG/ML inj. syringe IV PRN ×4 (03:46→19:50)
[2020-04-21 06:00] VITALS: BP 151/101
--- NOTE | 2020-04-21 06:30 | NUR ---
Problems reprioritized. Patient report given, questions answered & plan of care reviewed with Radha GILL.
--- NOTE | 2020-04-21 06:51 | NUR ---
Patient in room ORTHO 4010B. I have received report from JAIRO Wilkes and had the opportunity to ask questions and assume patient care.
[2020-04-21] MEDS: piperacillin/tazo 3.375gm/50ml 50 ML IV SCH ×2 (07:25→16:07)
[2020-04-21] MEDS: dextrose 5%-1/2 normal saline 1,000 ML IV SCH ×2 (07:34→19:42)
[2020-04-21] MEDS: lactobacillus rhamnosus 10,000 MMU CELLS/CAPSULE PO SCH ×2 (07:42→19:41)
[2020-04-21] MEDS: linezolid 600mg tablet PO SCH ×2 (07:43→19:41)
[2020-04-21] MEDS: gabapentin 400mg capsule PO SCH ×3 (07:43→19:41)
[2020-04-21] MEDS: heparin, porcine 5000 units/ml vial SQ SCH ×2 (07:47→19:42)
[2020-04-21] MEDS: K and/or MAG REPLACEMENT MC SCH ×2 (08:00→20:00)
[2020-04-21 10:00] VITALS: BP 144/103
[2020-04-21 10:03] LABS: BASOPHILS # (AUTO) 0.1 X10'3 (0-0.2); BASOPHILS % (AUTO) 0.6 % (0-1); EOSINOPHILS # (AUTO) 0.2 X10'3 (0-0.9); EOSINOPHILS % (AUTO) 1.8 % (0-6); HEMATOCRIT 39.3 % (42.0-52.0); HEMOGLOBIN 13.1 g/dl (14.0-17.9); LYMPHOCYTES # (AUTO) 1.1 X10'3 (1.1-4.8); LYMPHOCYTES % (AUTO) 12.9 % (21-51); MEAN CORPUSCULAR HGB CONC 33.4 g/dL (33.0-36.5); MEAN CORPUSCULAR VOLUME 89.8 FL (78-98); MEAN PLATELET VOLUME 7.7 FL (7.4-10.4); MONOCYTES # (AUTO) 0.6 X10'3 (0-0.9); MONOCYTES % (AUTO) 6.7 % (2-12); NEUTROPHILS # (AUTO) 6.9 X10'3 (1.8-7.7); PLATELET COUNT 231 X10'3 (140-440); RED BLOOD COUNT 4.38 X10'6 (4.70-6.10); RED CELL DISTRIBUTION WIDTH 13.6 % (11.5-14.5); WHITE BLOOD COUNT 8.8 X10'3 (4.5-11.0)
[2020-04-21 10:12] LABS: ANION GAP 7 (8-16); BLOOD UREA NITROGEN 10 MG/DL (7-18); BUN/CREATININE RATIO 13.2 (5.4-32.0); CALCIUM 8.3 MG/DL (8.5-10.1); CHLORIDE 104 MMOL/L (99-107); CREATININE 0.76 MG/DL (0.60-1.10); GLUCOSE 117 MG/DL (70-104); MAGNESIUM 2.1 MG/DL (1.5-2.4); POTASSIUM 4.3 MMOL/L (3.5-5.1); SODIUM 138 MMOL/L (135-145); TOTAL CARBON DIOXIDE 27.1 MMOL/L (24-32); eGFR > 90 ML/MIN
--- NOTE | 2020-04-21 16:20 | NUR ---
Page Sent PAGER ID: [phone] MESSAGE: OSMEL 5199-RE: TERESA SEVILLA 4010B...PLEASE CALL ME REGARDING PACEMAKER AND MRI, THANK YOU
--- NOTE | 2020-04-21 16:20 | NUR ---
SENT FOR RECORDS TO [place], [place] TO GET INFO ON PACEMAKER. REC'D RECORDS. PACEMAKER COMPATIBLE WITH MRI, BUT PER ESTRELLITA THERE WILL NEED TO BE A SPECIAL RN AND PACEMAKER MECHANICAL PRODUCT ENGINEER PRESENT FOR MRI. DR HINOJOSA ASPIRATED L WRIST/DORSAL HAND AND SENT FOR C&S, GRAM STAIN, ECT. PER DR. HINOJOSA MRI NOT NECESSARY RIGHT NOW AND HAPPY WITH ABX. MESSAGE RELAYED TO DR THOMAS AND HE AGREES, WE WILL WAIT ON MRI.
[2020-04-21 16:27] LABS: BFAPPEAR BLOODY
[2020-04-21 16:29] LABS: BFCOLOR RED; BFVOLUME 2 ML
--- NOTE | 2020-04-21 18:25 | NUR ---
Problems reprioritized. Patient report given, questions answered & plan of care reviewed with JAIRO LEA.
[2020-04-21 18:31] VITALS: BP 131/92
[2020-04-21 22:00] VITALS: BP 113/93
[2020-04-22] MEDS: morphine 2 MG/ML inj. syringe IV PRN ×5 (00:01→19:27)
[2020-04-22] MEDS: piperacillin/tazo 3.375gm/50ml 50 ML IV SCH ×3 (00:01→15:47)
[2020-04-22] MEDS: HYDROcodone/acetaminophen 10/325mg tab PO PRN ×3 (02:18→21:41)
[2020-04-22] MEDS: dextrose 5%-1/2 normal saline 1,000 ML IV SCH ×2 (05:25→14:26)
[2020-04-22 06:45] LABS: BASOPHILS # (AUTO) 0.1 X10'3 (0-0.2); EOSINOPHILS # (AUTO) 0.2 X10'3 (0-0.9); EOSINOPHILS % (AUTO) 3.3 % (0-6); HEMOGLOBIN 13.2 g/dl (14.0-17.9); LYMPHOCYTES # (AUTO) 1.9 X10'3 (1.1-4.8); LYMPHOCYTES % (AUTO) 28.2 % (21-51); MEAN CORPUSCULAR HGB CONC 33.8 g/dL (33.0-36.5); MEAN CORPUSCULAR VOLUME 88.8 FL (78-98); MEAN PLATELET VOLUME 7.4 FL (7.4-10.4); MONOCYTES # (AUTO) 0.6 X10'3 (0-0.9); MONOCYTES % (AUTO) 9.5 % (2-12); NEUTROPHILS # (AUTO) 3.9 X10'3 (1.8-7.7); PLATELET COUNT 262 X10'3 (140-440); RED BLOOD COUNT 4.39 X10'6 (4.70-6.10); RED CELL DISTRIBUTION WIDTH 13.3 % (11.5-14.5); WHITE BLOOD COUNT 6.6 X10'3 (4.5-11.0)
[2020-04-22 07:03] LABS: ALBUMIN 3.1 G/DL (3.4-5.0); ANION GAP 7 (8-16); BLOOD UREA NITROGEN 12 MG/DL (7-18); BUN/CREATININE RATIO 14.1 (5.4-32.0); CALCIUM 8.6 MG/DL (8.5-10.1); CHLORIDE 106 MMOL/L (99-107); CREATININE 0.85 MG/DL (0.60-1.10); GLUCOSE 102 MG/DL (70-104); MAGNESIUM 2.3 MG/DL (1.5-2.4); POTASSIUM 4.2 MMOL/L (3.5-5.1); SODIUM 140 MMOL/L (135-145); TOTAL CARBON DIOXIDE 27.5 MMOL/L (24-32); eGFR > 90 ML/MIN
[2020-04-22] MEDS: K and/or MAG REPLACEMENT MC SCH ×2 (08:00→19:44)
[2020-04-22] MEDS: gabapentin 400mg capsule PO SCH ×3 (08:37→19:26)
[2020-04-22] MEDS: linezolid 600mg tablet PO SCH ×2 (08:37→19:26)
[2020-04-22] MEDS: lactobacillus rhamnosus 10,000 MMU CELLS/CAPSULE PO SCH ×2 (08:37→19:26)
[2020-04-22] MEDS: heparin, porcine 5000 units/ml vial SQ SCH ×2 (08:37→19:45)
[2020-04-22 18:00] VITALS: BP 102/71
--- NOTE | 2020-04-22 18:15 | NUR ---
RECEIVED REPORT FROM JEWEL GILL AND ASSUMED PATIENT CARE
--- NOTE | 2020-04-22 18:46 | NUR ---
Problems reprioritized. Patient report given, questions answered & plan of care reviewed with JAIRO Novoa.
[2020-04-22 22:00] VITALS: BP 136/96
[2020-04-23] MEDS: dextrose 5%-1/2 normal saline 1,000 ML IV SCH ×3 (00:29→23:13)
[2020-04-23] MEDS: piperacillin/tazo 3.375gm/50ml 50 ML IV SCH ×4 (00:29→23:13)
[2020-04-23] MEDS: morphine 2 MG/ML inj. syringe IV PRN ×4 (00:29→12:24)
[2020-04-23] MEDS: HYDROcodone/acetaminophen 10/325mg tab PO PRN ×5 (05:38→23:14)
[2020-04-23 06:00] VITALS: BP 132/89
[2020-04-23 06:55] LABS: BASOPHILS # (AUTO) 0.1 X10'3 (0-0.2); BASOPHILS % (AUTO) 1.2 % (0-1); EOSINOPHILS # (AUTO) 0.3 X10'3 (0-0.9); EOSINOPHILS % (AUTO) 4.9 % (0-6); HEMATOCRIT 38.2 % (42.0-52.0); LYMPHOCYTES # (AUTO) 1.9 X10'3 (1.1-4.8); LYMPHOCYTES % (AUTO) 28.1 % (21-51); MEAN CORPUSCULAR HEMOGLOBIN 30.1 PG (27.0-31.0); MEAN CORPUSCULAR HGB CONC 34.1 g/dL (33.0-36.5); MEAN CORPUSCULAR VOLUME 88.2 FL (78-98); MEAN PLATELET VOLUME 7.1 FL (7.4-10.4); MONOCYTES # (AUTO) 0.7 X10'3 (0-0.9); MONOCYTES % (AUTO) 9.7 % (2-12); NEUTROPHILS # (AUTO) 3.9 X10'3 (1.8-7.7); NEUTROPHILS % (AUTO) 56.1 % (42-75); PLATELET COUNT 273 X10'3 (140-440); RED BLOOD COUNT 4.33 X10'6 (4.70-6.10); RED CELL DISTRIBUTION WIDTH 13.3 % (11.5-14.5); WHITE BLOOD COUNT 6.9 X10'3 (4.5-11.0)
[2020-04-23 07:02] LABS: ANION GAP 7 (8-16); BLOOD UREA NITROGEN 11 MG/DL (7-18); BUN/CREATININE RATIO 12.6 (5.4-32.0); CALCIUM 8.5 MG/DL (8.5-10.1); CHLORIDE 105 MMOL/L (99-107); CREATININE 0.87 MG/DL (0.60-1.10); GLUCOSE 107 MG/DL (70-104); MAGNESIUM 2.1 MG/DL (1.5-2.4); POTASSIUM 4.1 MMOL/L (3.5-5.1); SODIUM 140 MMOL/L (135-145); TOTAL CARBON DIOXIDE 28.3 MMOL/L (24-32); eGFR > 90 ML/MIN
[2020-04-23] MEDS: K and/or MAG REPLACEMENT MC SCH ×2 (08:00→20:00)
[2020-04-23] MEDS: linezolid 600mg tablet PO SCH ×2 (08:14→19:27)
[2020-04-23] MEDS: gabapentin 400mg capsule PO SCH ×3 (08:14→19:28)
[2020-04-23] MEDS: lactobacillus rhamnosus 10,000 MMU CELLS/CAPSULE PO SCH ×2 (08:14→19:28)
[2020-04-23] MEDS: heparin, porcine 5000 units/ml vial SQ SCH ×2 (08:16→20:00)
[2020-04-23 10:00] VITALS: BP 140/99
[2020-04-23 18:00] VITALS: BP 128/83
--- NOTE | 2020-04-23 18:19 | NUR ---
Problems reprioritized. Patient report given, questions answered & plan of care reviewed with Sommer GILL.
--- NOTE | 2020-04-23 19:20 | NUR ---
RECEIVED REPORT FROM ABIEL GILL AND ASSUMED PATIENT CARE
[2020-04-23 22:00] VITALS: BP 136/91
[2020-04-24 04:30] VITALS: BP 130/82
[2020-04-24] MEDS: HYDROcodone/acetaminophen 10/325mg tab PO PRN ×3 (04:32→12:50)
[2020-04-24] MEDS: dextrose 5%-1/2 normal saline 1,000 ML IV SCH (04:32)
[2020-04-24 06:00] VITALS: BP 130/82
[2020-04-24 06:09] LABS: BASOPHILS # (AUTO) 0.1 X10'3 (0-0.2); BASOPHILS % (AUTO) 1.4 % (0-1); EOSINOPHILS # (AUTO) 0.3 X10'3 (0-0.9); EOSINOPHILS % (AUTO) 5.6 % (0-6); HEMATOCRIT 40.2 % (42.0-52.0); HEMOGLOBIN 13.8 g/dl (14.0-17.9); LYMPHOCYTES # (AUTO) 1.9 X10'3 (1.1-4.8); LYMPHOCYTES % (AUTO) 35.8 % (21-51); MEAN CORPUSCULAR HEMOGLOBIN 30.5 PG (27.0-31.0); MEAN CORPUSCULAR HGB CONC 34.4 g/dL (33.0-36.5); MEAN CORPUSCULAR VOLUME 88.8 FL (78-98); MEAN PLATELET VOLUME 6.8 FL (7.4-10.4); MONOCYTES # (AUTO) 0.5 X10'3 (0-0.9); MONOCYTES % (AUTO) 8.6 % (2-12); NEUTROPHILS # (AUTO) 2.6 X10'3 (1.8-7.7); NEUTROPHILS % (AUTO) 48.6 % (42-75); PLATELET COUNT 266 X10'3 (140-440); RED BLOOD COUNT 4.53 X10'6 (4.70-6.10); RED CELL DISTRIBUTION WIDTH 13.3 % (11.5-14.5); WHITE BLOOD COUNT 5.3 X10'3 (4.5-11.0)
[2020-04-24 06:12] LABS: ALBUMIN 3.1 G/DL (3.4-5.0); ANION GAP 7 (8-16); BLOOD UREA NITROGEN 13 MG/DL (7-18); BUN/CREATININE RATIO 15.1 (5.4-32.0); CALCIUM 8.5 MG/DL (8.5-10.1); CHLORIDE 106 MMOL/L (99-107); CREATININE 0.86 MG/DL (0.60-1.10); GLUCOSE 104 MG/DL (70-104); POTASSIUM 4.1 MMOL/L (3.5-5.1); SODIUM 142 MMOL/L (135-145); TOTAL CARBON DIOXIDE 29.1 MMOL/L (24-32); eGFR > 90 ML/MIN
--- NOTE | 2020-04-24 06:17 | NUR ---
REPORT GIVEN TO ABIEL GILL
[2020-04-24] MEDS: K and/or MAG REPLACEMENT MC SCH (08:00)
[2020-04-24] MEDS: lactobacillus rhamnosus 10,000 MMU CELLS/CAPSULE PO SCH (08:22)
[2020-04-24] MEDS: gabapentin 400mg capsule PO SCH ×2 (08:22→12:50)
[2020-04-24] MEDS: linezolid 600mg tablet PO SCH (08:22)
[2020-04-24] MEDS: piperacillin/tazo 3.375gm/50ml 50 ML IV SCH ×2 (08:23→15:40)
[2020-04-24] MEDS: heparin, porcine 5000 units/ml vial SQ SCH (08:23)
[2020-04-24] MEDS ORDERED: LACT1CAP26 PO (09:16)
[2020-04-24] MEDS ORDERED: LINE600T14 PO (09:16)
--- NOTE | 2020-04-24 10:34 | NUR ---
Patients mom Kristel wanted more information about discharge. Unsure of what to do with son between discharge and going to rehab on May 07. Referred patient and mom to vp digital marketing social media and crm for another consult.
[2020-04-24 11:05] VITALS: BP 139/95
[2020-04-24] MEDS ORDERED: GABA800T11 PO (12:17)
--- NOTE | 2020-04-24 15:41 | NUR ---
Patient has been discharged since the morning, awaiting ride. PIV removed, cannula intact. Belongings and medications from pharmacy are going to be sent with patient. Prescriptions called to [facility] [address]. Received telephone orders from MD Escoto for Gabapentin 800 mg TID x 7 days, called to pharmacy, along with other meds.
--- NOTE | 2020-04-24 16:46 | NUR ---
Patient was picked up by mom, [facility]. PIV removed, cannula intact. Home meds were sent with patient. Belongings gathered and sent with patient.
== END 2020-04-24 16:40 | disposition home or self-care (01) | DRG 383 ==
LOC: ER 18:08 → ED HOLD 04-19 00:22 → ORTHO 4S 04-19 01:30
PROVIDERS: ADMIT Internal Medicine; ATTEND Family Medicine
PROC: BP2P1ZZ Computerized Tomography (CT Scan) of Left Hand using Low Osmolar Contrast (ICD-10-PCS; 2020-04-18)
PROC: 0H9GXZZ Drainage of Left Hand Skin, External Approach (ICD-10-PCS; principal; 2020-04-21)
DX: L03.114 Cellulitis of left upper limb (principal); I49.5 Sick sinus syndrome; F17.210 Nicotine dependence, cigarettes, uncomplicated; G89.29 Other chronic pain; I82.722 Chronic embolism and thrombosis of deep veins of left upper extremity; F15.10 Other stimulant abuse, uncomplicated; L02.512 Cutaneous abscess of left hand; M54.9 Dorsalgia, unspecified; Z95.0 Presence of cardiac pacemaker
CPT/HCPCS: 36415; 71045; 73201; 80048; 80053; 80305; 81001; 83605; 83735; 84132; 84145; 85025; 85610; 85730; 86140; 87040; 87070; 87077; 87081; 87186; 89051; 93005; 93971; 99285; G0378; J1644; J2020; J2270; J2405; J2543; J3370; J3490; J7030; Q9967

== ENCOUNTER 2020-05-06 18:21 | Emergency (ER) | payer MEDICAID ==
[~2020-05-06] VITALS: Ht 182.9 cm; Wt 72.7 kg
[~2020-05-06 18:21] MED LIST changes: -CEPH500C5 PO; +LACT1CAP26 PO; +LINE600T14 PO
[2020-05-06 18:37] VITALS: BP 117/85
[2020-05-06] MEDS ORDERED: GABA400C PO (18:45)
[2020-05-06] MEDS ORDERED: CEPH250T PO (18:45)
== END 2020-05-06 18:58 | disposition home or self-care (01) ==
LOC: ER 18:22
DX: S60.512A Abrasion of left hand, initial encounter (principal); S60.511A Abrasion of right hand, initial encounter; S00.81XA Abrasion of other part of head, initial encounter; S60.410A Abrasion of right index finger, initial encounter; S60.414A Abrasion of right ring finger, initial encounter; L03.011 Cellulitis of right finger; F15.10 Other stimulant abuse, uncomplicated; G62.9 Polyneuropathy, unspecified; F11.90 Opioid use, unspecified, uncomplicated; Z86.69 Personal history of other diseases of the nervous system and sense organs; Z98.890 Other specified postprocedural states; Z79.899 Other long term (current) drug therapy; W18.39XA Other fall on same level, initial encounter; Y93.89 Activity, other specified; Y92.89 Other specified places as the place of occurrence of the external cause; Y99.8 Other external cause status
CPT/HCPCS: 99283

== ENCOUNTER 2020-05-13 12:50 | Emergency (ER) | payer MEDICAID ==
[~2020-05-13] VITALS: Ht 185.4 cm; Wt 90.0 kg
[~2020-05-13 12:50] MED LIST changes: +CEPH250T PO; +GABA400C PO
[2020-05-13] MEDS ORDERED: SULF1TAB49 PO (15:09)
[2020-05-13] MEDS ORDERED: GABA800T11 PO (15:09)
[2020-05-13 15:32] VITALS: BP 135/90
== END 2020-05-13 15:33 | disposition home or self-care (01) ==
LOC: ER 12:51
DX: L03.116 Cellulitis of left lower limb (principal); M79.652 Pain in left thigh; M54.5 Low back pain; F15.90 Other stimulant use, unspecified, uncomplicated; F11.90 Opioid use, unspecified, uncomplicated; F19.90 Other psychoactive substance use, unspecified, uncomplicated; Z86.69 Personal history of other diseases of the nervous system and sense organs; Z79.2 Long term (current) use of antibiotics; Z79.899 Other long term (current) drug therapy
CPT/HCPCS: 99283

== ENCOUNTER 2020-05-17 03:25 | Emergency (ER) | payer MEDICAID ==
[~2020-05-17] VITALS: Ht 185.4 cm; Wt 81.8 kg
[~2020-05-17 03:25] MED LIST changes: +SULF1TAB49 PO
[2020-05-17] MEDS ORDERED: SULF1TAB49 PO (03:57)
--- NOTE | 2020-05-17 03:57 | NUR ---
TECH CLEANSED WOUNDS. SUMMONED MD TO LOOK AT THE WOUNDS. TECH IS BANDAGING THEM WELL.
[2020-05-17] MEDS ORDERED: TETanus/Pertussis (Acell)/Diphther VAC/PF (Tdap-Adult) 0.5ml syringe IMVAC ONE (04:00)
[2020-05-17] MEDS ORDERED: ceFAZolin 1gm IM kit IM ONE (04:00)
[2020-05-17 04:14] VITALS: BP 114/76
[2020-05-17] MEDS ORDERED: diltiazem-D5W 125mg/125ml 125 ML IV SCH (04:15)
[2020-05-17] MEDS ORDERED: diltiazem-NS 100mg/100ml 100 ML IV SCH (04:16)
== END 2020-05-17 04:16 ==
LOC: ER 03:26
DX: S80.811A Abrasion, right lower leg, initial encounter (principal); S80.812A Abrasion, left lower leg, initial encounter; S60.512A Abrasion of left hand, initial encounter; S60.511A Abrasion of right hand, initial encounter; F15.90 Other stimulant use, unspecified, uncomplicated; F11.90 Opioid use, unspecified, uncomplicated; F19.90 Other psychoactive substance use, unspecified, uncomplicated; Z86.69 Personal history of other diseases of the nervous system and sense organs; Z79.2 Long term (current) use of antibiotics; Z79.899 Other long term (current) drug therapy; X58.XXXA Exposure to other specified factors, initial encounter; Y93.89 Activity, other specified; Y92.89 Other specified places as the place of occurrence of the external cause; Y99.8 Other external cause status
CPT/HCPCS: 90471; 90715; 93005; 96372; 99284; J0690

== ENCOUNTER 2020-05-28 15:55 | Emergency (ER) | payer MEDICAID ==
[~2020-05-28] VITALS: Ht 180.3 cm; Wt 75.9 kg
[~2020-05-28 15:55] MED LIST changes: -CEPH250T PO
[2020-05-28 16:09] VITALS: BP 129/84
[2020-05-28] MEDS ORDERED: GABA600T13 PO (17:12)
== END 2020-05-28 17:30 | disposition home or self-care (01) ==
LOC: ER 15:56
DX: Z76.0 Encounter for issue of repeat prescription (principal); F15.10 Other stimulant abuse, uncomplicated; F11.90 Opioid use, unspecified, uncomplicated; F19.90 Other psychoactive substance use, unspecified, uncomplicated; Z86.69 Personal history of other diseases of the nervous system and sense organs; Z95.0 Presence of cardiac pacemaker; Z79.899 Other long term (current) drug therapy
CPT/HCPCS: 99281